=== PATIENT | female | born 1990 | race Two or more races ===

== ENCOUNTER 2018-03-27 00:39 | Inpatient (IN) | payer MEDICAID, OTHER ==
[~2018-03-27] VITALS: Ht 160 cm; Wt 74.5 kg
[2018-03-27] MEDS ORDERED: SODIUM CHLORIDE 0.9% 1,000 ML IV ONE ×3 (07:11→19:45)
[2018-03-27] MEDS ORDERED: MORPHINE SULFATE 4 MG/ML SYR/VIAL IV ONE (07:15)
[2018-03-27] MEDS ORDERED: ONDANSETRON HCL 4 MG/2 ML VIAL IV ONE (07:15)
[2018-03-27] MEDS ORDERED: PIPERACILLIN-TAZOB 3.375GM 100 ML IV ONE (07:15)
[2018-03-27 07:33] LABS: Basophils # (auto) 0.1 uL; Basophils % (auto) 0.4 % (0.0-2.0); Eosinophils # (auto) 0 uL; Eosinophils % (auto) 0.1 % (0.0-7.0); Hematocrit 33.7 % (36.0-46.0); Hemoglobin 11.1 g/dL (12.2-16.2); Lymphocytes % (auto) 5.6 % (10.0-50.0); Mean Corpuscular Hemoglobin 28.4 pg (28.0-32.0); Mean Corpuscular Volume 86.2 fL (80.0-100.0); Monocytes # (auto) 1.3 uL; Monocytes % (auto) 7.6 % (0.0-12.0); Neutrophils # (auto) 15.2 uL; Neutrophils % (auto) 86.3 % (37.0-80.0); Platelet Count (auto) 246 10^3/uL (140-450); Red Cell Distribution Width 13.5 % (11.8-14.3); White Blood Cell 17.6 10^3/uL (4.4-10.8)
[2018-03-27 07:58] LABS: Albumin 2.6 g/dL (3.4-5.0); Bilirubin, Total 0.5 mg/dL (0.2-1.0); Calcium 8.4 mg/dL (8.5-10.1); Potassium 3.8 mmol/L (3.5-5.1); Total Protein 7.6 g/dL (6.4-8.2)
[2018-03-27] MEDS ORDERED: CLINDAMYCIN 600MG IV 50 ML IV ONE (08:15)
[2018-03-27] MEDS: SODIUM CHLORIDE 0.9% 1,000 ML IV SCH ×2 (08:43→15:23)
[2018-03-27] MEDS ORDERED: VANCOMYCIN PER PHARMACY 0 MG IV SCH (08:45)
[2018-03-27] MEDS ORDERED: LACTULOSE 20Gm/30ML SOLN PO PRN (08:45)
[2018-03-27] MEDS ORDERED: MORPHINE SULF INJ 2 MG/ML SYRINGE 1ML IV PRN (08:45)
[2018-03-27] MEDS ORDERED: NITROGLYCERIN 0.4 MG SL TAB SL PRN (08:45)
[2018-03-27] MEDS ORDERED: TEMAZEPAM 15 MG CAP PO PRN (08:45)
[2018-03-27] MEDS ORDERED: LORazepam 0.5 MG TAB PO PRN (08:45)
[2018-03-27] MEDS: ENOXAPARIN SOD 40 MG/0.4 ML SYRINGE SC SCH (10:00)
[2018-03-27] MEDS ORDERED: VANCOMYCIN 1GM/250ML 250 ML IV ONE (10:00)
[2018-03-27] MEDS ORDERED: SODIUM CHLORIDE 0.9% 2,000 ML IV ONE (10:00)
[2018-03-27] MEDS: HYDROcodone-ACET 5/325MG TAB PO PRN ×2 (10:45→18:35)
[2018-03-27 10:46] LABS: Urine Bacteria FEW /hpf (None Seen); Urine Blood TRACE /uL (Negative); Urine Specific Gravity 1.011 (1.001-1.035); Urine WBC 1 /hpf (0 - 5)
[2018-03-27] MEDS: KETOROLAC TROMETH 30 MG/ML 1ML VIAL IV PRN ×2 (14:08→22:30)
[2018-03-27] MEDS: PIPERACILLIN-TAZOB 3.375GM 100 ML IV SCH ×2 (15:00→21:23)
[2018-03-27] MEDS ORDERED: IOHEXOL 300 MG/ML 100ML BOTTLE IJ ONE (19:48)
[2018-03-27 22:00] VITALS: BP 99/34
[2018-03-28] VITALS (35 sets, daily range): BP systolic 80–125; BP diastolic 34–78
[2018-03-28] MEDS: VANCOMYCIN 1GM/250ML 250 ML IV SCH ×2 (00:45→14:02)
[2018-03-28] MEDS ORDERED: traMADol HCL 50 MG TAB PO ONE (02:00)
[2018-03-28] MEDS: PIPERACILLIN-TAZOB 3.375GM 100 ML IV SCH ×4 (03:40→21:00)
[2018-03-28 05:38] LABS: Basophils # (auto) 0 uL; Basophils % (auto) 0.2 % (0.0-2.0); Eosinophils # (auto) 0.1 uL; Eosinophils % (auto) 0.6 % (0.0-7.0); Hematocrit 27.2 % (36.0-46.0); Hemoglobin 9.2 g/dL (12.2-16.2); Lymphocytes % (auto) 8.1 % (10.0-50.0); Mean Corpuscular Hemoglobin 29.2 pg (28.0-32.0); Mean Corpuscular Hgb Conc. 33.7 g/dL (32.0-36.0); Mean Corpuscular Volume 86.4 fL (80.0-100.0); Monocytes # (auto) 0.9 uL; Monocytes % (auto) 6.7 % (0.0-12.0); Neutrophils # (auto) 10.8 uL; Neutrophils % (auto) 84.4 % (37.0-80.0); Platelet Count (auto) 205 10^3/uL (140-450); Red Blood Cells 3.15 10^6/uL (4.0-5.20); Red Cell Distribution Width 13.1 % (11.8-14.3); White Blood Cell 12.8 10^3/uL (4.4-10.8)
[2018-03-28] MEDS: MORPHINE SULF INJ 2 MG/ML SYRINGE 1ML IV PRN (05:50)
[2018-03-28 05:58] LABS: Albumin 1.8 g/dL (3.4-5.0); BUN/Creatinine Ratio 6.9; Calcium 7.1 mg/dL (8.5-10.1); Potassium 3.4 mmol/L (3.5-5.1)
[2018-03-28 06:01] LABS: Bilirubin, Total 0.6 mg/dL (0.2-1.0); Total Protein 5.6 g/dL (6.4-8.2)
[2018-03-28] MEDS: KETOROLAC TROMETH 30 MG/ML 1ML VIAL IV PRN (06:20)
[2018-03-28] MEDS: SODIUM CHLORIDE 0.9% 1,000 ML IV SCH ×4 (09:42→18:03)
[2018-03-28] MEDS: ENOXAPARIN SOD 40 MG/0.4 ML SYRINGE SC SCH (10:10)
[2018-03-28] MEDS ORDERED: POTASSIUM CHL 10 Meq TABLET PO ONE (11:00)
[2018-03-28] MEDS ORDERED: SODIUM CHLORIDE 0.9% 1,000 ML IV ONE (11:15)
[2018-03-28] MEDS ORDERED: ALBUMIN 25% 50 ML IV ONE (12:00)
[2018-03-28] MEDS ORDERED: KETOROLAC TROMETH 30 MG/ML 1ML VIAL IV PRN (12:00)
[2018-03-28] MEDS ORDERED: KETOROLAC TROMETH 30 MG/ML 1ML VIAL IV ONE (12:00)
[2018-03-28] MEDS: Ensure Enlive Strawberry 8oz Bottle PO SCH ×2 (12:20→18:00)
[2018-03-28] MEDS: HYDROcodone-ACET 5/325MG TAB PO PRN ×3 (14:30→22:41)
[2018-03-28] MEDS: NOREPINEPHRINE 8 MG/250ML KIT 250 ML IV SCH (17:00)
[2018-03-29] VITALS (16 sets, daily range): BP systolic 96–111; BP diastolic 42–59
[2018-03-29] MEDS: SODIUM CHLORIDE 0.9% 1,000 ML IV SCH ×4 (00:43→17:40)
[2018-03-29] MEDS: MORPHINE SULF INJ 2 MG/ML SYRINGE 1ML IV PRN ×2 (03:00→07:55)
[2018-03-29] MEDS: PIPERACILLIN-TAZOB 3.375GM 100 ML IV SCH ×4 (03:00→20:54)
[2018-03-29 03:49] LABS: Basophils # (auto) 0.1 uL; Basophils % (auto) 0.4 % (0.0-2.0); Eosinophils # (auto) 0.1 uL; Eosinophils % (auto) 0.7 % (0.0-7.0); Hematocrit 28.3 % (36.0-46.0); Hemoglobin 9.2 g/dL (12.2-16.2); Lymphocytes # (auto) 1.6 uL; Lymphocytes % (auto) 9.9 % (10.0-50.0); Mean Corpuscular Hemoglobin 27.9 pg (28.0-32.0); Mean Corpuscular Hgb Conc. 32.5 g/dL (32.0-36.0); Monocytes # (auto) 1.1 uL; Monocytes % (auto) 6.6 % (0.0-12.0); Neutrophils # (auto) 13.3 uL; Neutrophils % (auto) 82.4 % (37.0-80.0); Platelet Count (auto) 240 10^3/uL (140-450); Red Blood Cells 3.29 10^6/uL (4.0-5.20); Red Cell Distribution Width 13.3 % (11.8-14.3); White Blood Cell 16.2 10^3/uL (4.4-10.8)
[2018-03-29 04:08] LABS: Calcium 7.3 mg/dL (8.5-10.1); Potassium 3.5 mmol/L (3.5-5.1)
[2018-03-29 04:11] LABS: BUN/Creatinine Ratio 6.5
[2018-03-29] MEDS: HYDROcodone-ACET 5/325MG TAB PO PRN ×3 (07:00→16:40)
[2018-03-29] MEDS: Ensure Enlive Strawberry 8oz Bottle PO SCH ×3 (09:22→17:40)
[2018-03-29] MEDS: NOREPINEPHRINE 8 MG/250ML KIT 250 ML IV SCH (11:15)
[2018-03-29] MEDS: VANCOMYCIN 1GM/250ML 250 ML IV SCH ×3 (12:00→23:45)
[2018-03-29] MEDS: ENOXAPARIN SOD 40 MG/0.4 ML SYRINGE SC SCH (18:00)
[2018-03-29] MEDS: KETOROLAC TROMETH 30 MG/ML 1ML VIAL IV PRN (19:27)
[2018-03-29] MEDS: PROMETHAZINE HCL 25 MG/ML 1ML IV PRN (21:17)
[2018-03-30] VITALS (23 sets, daily range): BP systolic 84–128; BP diastolic 43–70
[2018-03-30] MEDS: KETOROLAC TROMETH 30 MG/ML 1ML VIAL IV PRN ×5 (00:44→19:47)
[2018-03-30] MEDS: PIPERACILLIN-TAZOB 3.375GM 100 ML IV SCH ×4 (02:56→20:53)
[2018-03-30] MEDS: SODIUM CHLORIDE 0.9% 1,000 ML IV SCH ×4 (03:23→23:23)
[2018-03-30 03:52] LABS: Eosinophils # (auto) 0.1 uL; Eosinophils % (auto) 0.9 % (0.0-7.0); Hemoglobin 8.2 g/dL (12.2-16.2); Lymphocytes % (auto) 7.5 % (10.0-50.0); Monocytes # (auto) 1.1 uL
[2018-03-30 03:55] LABS: Basophils # (auto) 0 uL; Basophils % (auto) 0.3 % (0.0-2.0); Hematocrit 24.8 % (36.0-46.0); Mean Corpuscular Hemoglobin 28.4 pg (28.0-32.0); Mean Corpuscular Hgb Conc. 33.1 g/dL (32.0-36.0); Mean Corpuscular Volume 85.7 fL (80.0-100.0); Monocytes % (auto) 8.3 % (0.0-12.0); Platelet Count (auto) 189 10^3/uL (140-450); Red Blood Cells 2.89 10^6/uL (4.0-5.20); Red Cell Distribution Width 13.1 % (11.8-14.3); White Blood Cell 13.2 10^3/uL (4.4-10.8)
[2018-03-30 04:10] LABS: BUN/Creatinine Ratio 5.8; Calcium 7.2 mg/dL (8.5-10.1)
[2018-03-30] MEDS: ACETAMINOPHEN 500 MG TAB PO PRN (06:09)
[2018-03-30] MEDS: ENOXAPARIN SOD 40 MG/0.4 ML SYRINGE SC SCH (09:41)
[2018-03-30] MEDS: Ensure Enlive Strawberry 8oz Bottle PO SCH ×3 (09:41→18:00)
[2018-03-30] MEDS: NOREPINEPHRINE 8 MG/250ML KIT 250 ML IV SCH (10:26)
[2018-03-30] MEDS ORDERED: POTASSIUM EFFERVESENT TAB 25 MEQ PO ONE (11:15)
[2018-03-30] MEDS: VANCOMYCIN 1GM/250ML 250 ML IV SCH (12:19)
[2018-03-30] MEDS ORDERED: POTASSIUM CHL 20MEQ/100ML 100 ML IV ONE (15:15)
[2018-03-30] MEDS: FAMOTIDINE 20 MG TAB PO SCH (15:19)
[2018-03-30] MEDS: PROMETHAZINE HCL 25 MG/ML 1ML IV PRN (19:47)
[2018-03-31] VITALS (14 sets, daily range): BP systolic 97–119; BP diastolic 54–72
[2018-03-31] MEDS: VANCOMYCIN 1GM/250ML 250 ML IV SCH ×2 (00:14→13:06)
[2018-03-31] MEDS: KETOROLAC TROMETH 30 MG/ML 1ML VIAL IV PRN ×2 (01:30→10:24)
[2018-03-31 01:45] LABS: Basophils # (auto) 0.1 uL; Basophils % (auto) 0.6 % (0.0-2.0); Eosinophils # (auto) 0.2 uL; Eosinophils % (auto) 1.3 % (0.0-7.0); Hematocrit 27.1 % (36.0-46.0); Hemoglobin 8.9 g/dL (12.2-16.2); Lymphocytes # (auto) 1.4 uL; Lymphocytes % (auto) 9.6 % (10.0-50.0); Mean Corpuscular Hemoglobin 27.9 pg (28.0-32.0); Mean Corpuscular Hgb Conc. 32.9 g/dL (32.0-36.0); Mean Corpuscular Volume 84.8 fL (80.0-100.0); Monocytes % (auto) 7.1 % (0.0-12.0); Neutrophils # (auto) 11.7 uL; Neutrophils % (auto) 81.4 % (37.0-80.0); Platelet Count (auto) 264 10^3/uL (140-450); Red Blood Cells 3.19 10^6/uL (4.0-5.20); Red Cell Distribution Width 13.6 % (11.8-14.3); White Blood Cell 14.4 10^3/uL (4.4-10.8)
[2018-03-31 02:02] LABS: BUN/Creatinine Ratio 5.6; Potassium 3.5 mmol/L (3.5-5.1)
[2018-03-31] MEDS: PIPERACILLIN-TAZOB 3.375GM 100 ML IV SCH ×4 (03:03→21:49)
[2018-03-31] MEDS: SODIUM CHLORIDE 0.9% 1,000 ML IV SCH ×3 (06:03→19:11)
[2018-03-31] MEDS: FAMOTIDINE 20 MG TAB PO SCH (10:06)
[2018-03-31] MEDS: ENOXAPARIN SOD 40 MG/0.4 ML SYRINGE SC SCH (10:06)
[2018-03-31] MEDS: NOREPINEPHRINE 8 MG/250ML KIT 250 ML IV SCH (10:08)
[2018-03-31] MEDS: Ensure Enlive Strawberry 8oz Bottle PO SCH ×3 (10:08→18:22)
[2018-03-31] MEDS: HYDROcodone-ACET 5/325MG TAB PO PRN ×2 (18:20→22:58)
[2018-04-01] MEDS: SODIUM CHLORIDE 0.9% 1,000 ML IV SCH ×4 (00:16→22:03)
[2018-04-01] MEDS: VANCOMYCIN 1GM/250ML 250 ML IV SCH ×2 (00:16→12:22)
[2018-04-01] MEDS: PIPERACILLIN-TAZOB 3.375GM 100 ML IV SCH ×4 (03:07→20:51)
[2018-04-01] MEDS: HYDROcodone-ACET 5/325MG TAB PO PRN ×4 (03:20→21:35)
[2018-04-01 04:49] VITALS: BP 112/61
[2018-04-01 07:21] LABS: Basophils # (auto) 0 uL; Basophils % (auto) 0.2 % (0.0-2.0); Eosinophils # (auto) 0.2 uL; Hematocrit 24.5 % (36.0-46.0); Hemoglobin 8.6 g/dL (12.2-16.2); Lymphocytes # (auto) 1.2 uL; Lymphocytes % (auto) 11.5 % (10.0-50.0); Mean Corpuscular Hemoglobin 29.5 pg (28.0-32.0); Mean Corpuscular Volume 84.4 fL (80.0-100.0); Monocytes # (auto) 0.6 uL; Monocytes % (auto) 6.1 % (0.0-12.0); Neutrophils # (auto) 8.5 uL; Neutrophils % (auto) 80.2 % (37.0-80.0); Nucleated Red Blood Cells % 0.1 %; Platelet Count (auto) 258 10^3/uL (140-450); Red Cell Distribution Width 13.6 % (11.8-14.3); White Blood Cell 10.6 10^3/uL (4.4-10.8)
[2018-04-01 07:24] LABS: Albumin 1.6 g/dL (3.4-5.0); BUN/Creatinine Ratio 4.9; Bilirubin, Total 0.4 mg/dL (0.2-1.0); Calcium 7.5 mg/dL (8.5-10.1); Potassium 3.3 mmol/L (3.5-5.1); Total Protein 5.5 g/dL (6.4-8.2)
[2018-04-01 08:27] VITALS: BP 115/65
[2018-04-01 09:00] VITALS: BP 115/65
[2018-04-01] MEDS: Ensure Enlive Strawberry 8oz Bottle PO SCH ×3 (09:01→18:21)
[2018-04-01] MEDS: ENOXAPARIN SOD 40 MG/0.4 ML SYRINGE SC SCH (09:02)
[2018-04-01] MEDS: FAMOTIDINE 20 MG TAB PO SCH (09:02)
[2018-04-01] MEDS ORDERED: POTASSIUM EFFERVESENT TAB 25 MEQ PO ONE (10:00)
[2018-04-01 12:23] VITALS: BP 136/76
[2018-04-01] MEDS: PROMETHAZINE HCL 25 MG/ML 1ML IV PRN ×2 (12:54→16:50)
[2018-04-01 17:16] VITALS: BP 131/79
[2018-04-01] MEDS: ACETAMINOPHEN 500 MG TAB PO PRN (20:40)
[2018-04-01 22:12] VITALS: BP 123/75
[2018-04-02] MEDS: VANCOMYCIN 1GM/250ML 250 ML IV SCH ×2 (00:08→13:02)
[2018-04-02] MEDS: PIPERACILLIN-TAZOB 3.375GM 100 ML IV SCH ×4 (02:58→21:34)
[2018-04-02] MEDS: HYDROcodone-ACET 5/325MG TAB PO PRN ×5 (02:58→21:34)
[2018-04-02] MEDS: SODIUM CHLORIDE 0.9% 1,000 ML IV SCH ×3 (04:43→18:04)
[2018-04-02 05:00] VITALS: BP 121/71
[2018-04-02 06:41] LABS: Basophils # (auto) 0.1 uL; Basophils % (auto) 0.5 % (0.0-2.0); Eosinophils # (auto) 0.2 uL; Eosinophils % (auto) 1.8 % (0.0-7.0); Hematocrit 25.3 % (36.0-46.0); Hemoglobin 8.5 g/dL (12.2-16.2); Lymphocytes # (auto) 1.1 uL; Lymphocytes % (auto) 10.2 % (10.0-50.0); Mean Corpuscular Hgb Conc. 33.4 g/dL (32.0-36.0); Mean Corpuscular Volume 83.8 fL (80.0-100.0); Monocytes # (auto) 0.6 uL; Monocytes % (auto) 5.6 % (0.0-12.0); Neutrophils # (auto) 8.9 uL; Neutrophils % (auto) 81.9 % (37.0-80.0); Platelet Count (auto) 268 10^3/uL (140-450); Red Blood Cells 3.02 10^6/uL (4.0-5.20); Red Cell Distribution Width 13.6 % (11.8-14.3); White Blood Cell 10.9 10^3/uL (4.4-10.8)
[2018-04-02 07:07] LABS: Calcium 7.9 mg/dL (8.5-10.1); Potassium 3.3 mmol/L (3.5-5.1)
[2018-04-02 07:13] LABS: BUN/Creatinine Ratio 6.2
[2018-04-02] MEDS: PROMETHAZINE HCL 25 MG/ML 1ML IV PRN ×3 (07:30→21:41)
[2018-04-02] MEDS: Ensure Enlive Strawberry 8oz Bottle PO SCH ×3 (07:52→17:14)
[2018-04-02 08:00] VITALS: BP 140/76
[2018-04-02] MEDS: ENOXAPARIN SOD 40 MG/0.4 ML SYRINGE SC SCH (09:13)
[2018-04-02] MEDS: FAMOTIDINE 20 MG TAB PO SCH (09:14)
[2018-04-02 09:44] VITALS: BP 140/76
[2018-04-02 14:48] VITALS: BP 126/78
[2018-04-02] MEDS ORDERED: POTASSIUM CHL 20 Meq TABLET PO ONE (16:15)
[2018-04-02] MEDS: Pro-Stat SF 30ml Vanilla PO SCH (17:14)
[2018-04-02 17:24] VITALS: BP 131/77
[2018-04-02 21:48] VITALS: BP 136/73
[2018-04-03] MEDS: VANCOMYCIN 1GM/250ML 250 ML IV SCH ×2 (00:17→11:50)
[2018-04-03] MEDS: SODIUM CHLORIDE 0.9% 1,000 ML IV SCH ×4 (00:43→21:03)
[2018-04-03] MEDS: PROMETHAZINE HCL 25 MG/ML 1ML IV PRN ×2 (02:04→22:02)
[2018-04-03] MEDS: HYDROcodone-ACET 5/325MG TAB PO PRN ×5 (02:05→21:03)
[2018-04-03] MEDS: PIPERACILLIN-TAZOB 3.375GM 100 ML IV SCH ×4 (03:33→22:02)
[2018-04-03 04:38] VITALS: BP 129/73
[2018-04-03] MEDS: ENOXAPARIN SOD 40 MG/0.4 ML SYRINGE SC SCH (08:58)
[2018-04-03] MEDS: FAMOTIDINE 20 MG TAB PO SCH (08:59)
[2018-04-03] MEDS: MULTIPLE VITAMIN TAB PO SCH (08:59)
[2018-04-03 09:00] VITALS: BP 117/73
[2018-04-03] MEDS: ASCORBIC ACID 500 MG TAB PO SCH (09:03)
[2018-04-03] MEDS: Pro-Stat SF 30ml Vanilla PO SCH ×2 (09:07→17:59)
[2018-04-03] MEDS: Ensure Enlive Strawberry 8oz Bottle PO SCH ×3 (09:07→17:59)
[2018-04-03] MEDS ORDERED: Pro-Stat SF 30ml Vanilla PO SCH (10:00)
[2018-04-03 13:00] VITALS: BP 116/72
[2018-04-03 17:00] VITALS: BP 106/54
[2018-04-03 22:00] VITALS: BP 125/79
[2018-04-04] MEDS: VANCOMYCIN 1GM/250ML 250 ML IV SCH ×3 (00:34→23:30)
[2018-04-04] MEDS: HYDROcodone-ACET 5/325MG TAB PO PRN ×6 (01:01→23:30)
[2018-04-04] MEDS: PIPERACILLIN-TAZOB 3.375GM 100 ML IV SCH ×4 (02:54→20:42)
[2018-04-04 05:00] VITALS: BP 106/58
[2018-04-04] MEDS: ENOXAPARIN SOD 40 MG/0.4 ML SYRINGE SC SCH (08:22)
[2018-04-04] MEDS: ASCORBIC ACID 500 MG TAB PO SCH (08:23)
[2018-04-04] MEDS: MULTIPLE VITAMIN TAB PO SCH (08:23)
[2018-04-04] MEDS: FAMOTIDINE 20 MG TAB PO SCH (08:23)
[2018-04-04] MEDS: Ensure Enlive Strawberry 8oz Bottle PO SCH ×3 (08:24→17:42)
[2018-04-04] MEDS: Pro-Stat SF 30ml Vanilla PO SCH ×2 (08:24→17:42)
[2018-04-04] MEDS: SODIUM CHLORIDE 0.9% 1,000 ML IV SCH ×2 (08:28→10:44)
[2018-04-04 09:00] VITALS: BP 130/66
[2018-04-04 13:00] VITALS: BP 102/54
[2018-04-04 17:00] VITALS: BP 121/85
[2018-04-04] MEDS ORDERED: POTASSIUM CHL 10 Meq TABLET PO ONE (18:45)
[2018-04-04] MEDS ORDERED: FUROSEMIDE 20 MG/2 ML VIAL IV ONE (19:15)
[2018-04-04 22:00] VITALS: BP 109/55
[2018-04-04] MEDS: ACETAMINOPHEN 500 MG TAB PO PRN (23:53)
[2018-04-05] MEDS: PIPERACILLIN-TAZOB 3.375GM 100 ML IV SCH ×4 (02:32→20:30)
[2018-04-05] MEDS: PROMETHAZINE HCL 25 MG/ML 1ML IV PRN (02:33)
[2018-04-05] MEDS: HYDROcodone-ACET 5/325MG TAB PO PRN ×5 (03:30→23:36)
[2018-04-05 05:00] VITALS: BP 101/60
[2018-04-05] MEDS: ACETAMINOPHEN 500 MG TAB PO PRN ×2 (06:03→20:00)
[2018-04-05 08:30] VITALS: BP 105/67
[2018-04-05 08:33] LABS: Basophils # (auto) 0 uL; Basophils % (auto) 0.5 % (0.0-2.0); Eosinophils # (auto) 0.1 uL; Eosinophils % (auto) 1.2 % (0.0-7.0); Hematocrit 25.9 % (36.0-46.0); Hemoglobin 8.6 g/dL (12.2-16.2); Lymphocytes # (auto) 0.8 uL; Lymphocytes % (auto) 11.1 % (10.0-50.0); Mean Corpuscular Hemoglobin 27.9 pg (28.0-32.0); Mean Corpuscular Hgb Conc. 33.3 g/dL (32.0-36.0); Mean Corpuscular Volume 83.7 fL (80.0-100.0); Monocytes # (auto) 0.4 uL; Monocytes % (auto) 6.2 % (0.0-12.0); Neutrophils # (auto) 5.8 uL; Platelet Count (auto) 224 10^3/uL (140-450); White Blood Cell 7.1 10^3/uL (4.4-10.8)
[2018-04-05 08:48] LABS: Calcium 8.3 mg/dL (8.5-10.1); Potassium 3.5 mmol/L (3.5-5.1)
[2018-04-05] MEDS: ENOXAPARIN SOD 40 MG/0.4 ML SYRINGE SC SCH (10:49)
[2018-04-05] MEDS: MULTIPLE VITAMIN TAB PO SCH (10:50)
[2018-04-05] MEDS: Ensure Enlive Strawberry 8oz Bottle PO SCH ×3 (10:50→18:00)
[2018-04-05] MEDS: Pro-Stat SF 30ml Vanilla PO SCH ×2 (10:50→18:00)
[2018-04-05] MEDS: ASCORBIC ACID 500 MG TAB PO SCH (10:50)
[2018-04-05] MEDS: FAMOTIDINE 20 MG TAB PO SCH (10:50)
[2018-04-05] MEDS: VANCOMYCIN 1GM/250ML 250 ML IV SCH ×2 (11:50→23:35)
[2018-04-05 12:30] VITALS: BP 108/53
[2018-04-05 17:00] VITALS: BP 105/59
[2018-04-05 22:00] VITALS: BP 110/60
[2018-04-06] MEDS: PIPERACILLIN-TAZOB 3.375GM 100 ML IV SCH ×4 (03:40→21:19)
[2018-04-06] MEDS: HYDROcodone-ACET 5/325MG TAB PO PRN ×4 (03:41→22:20)
[2018-04-06] MEDS: ACETAMINOPHEN 500 MG TAB PO PRN ×2 (03:41→21:22)
[2018-04-06 05:14] VITALS: BP 93/53
[2018-04-06 08:43] VITALS: BP 112/58
[2018-04-06] MEDS: ASCORBIC ACID 500 MG TAB PO SCH (09:41)
[2018-04-06] MEDS: FAMOTIDINE 20 MG TAB PO SCH (09:41)
[2018-04-06] MEDS: MULTIPLE VITAMIN TAB PO SCH (09:41)
[2018-04-06] MEDS: ENOXAPARIN SOD 40 MG/0.4 ML SYRINGE SC SCH (09:41)
[2018-04-06 11:06] LABS: BUN/Creatinine Ratio 6.6; Calcium 8.3 mg/dL (8.5-10.1); Potassium 3.9 mmol/L (3.5-5.1)
[2018-04-06 14:51] VITALS: BP 115/64
[2018-04-06] MEDS: Pro-Stat SF 30ml Vanilla PO SCH ×2 (16:04→18:10)
[2018-04-06] MEDS: Ensure Enlive Strawberry 8oz Bottle PO SCH ×3 (16:04→18:10)
[2018-04-06 16:47] VITALS: BP 119/65
[2018-04-06] MEDS: VANCOMYCIN 1GM/250ML 250 ML IV SCH (17:49)
[2018-04-06 20:00] VITALS: BP 111/63
[2018-04-06 22:00] VITALS: BP 111/63
[2018-04-07] MEDS: PIPERACILLIN-TAZOB 3.375GM 100 ML IV SCH ×4 (03:30→21:03)
[2018-04-07 05:00] VITALS: BP 109/59
[2018-04-07] MEDS: HYDROcodone-ACET 5/325MG TAB PO PRN ×4 (05:00→23:06)
[2018-04-07 07:48] LABS: Basophils # (auto) 0 uL; Basophils % (auto) 0.4 % (0.0-2.0); Eosinophils # (auto) 0 uL; Eosinophils % (auto) 0.4 % (0.0-7.0); Hematocrit 28.7 % (36.0-46.0); Hemoglobin 9.7 g/dL (12.2-16.2); Lymphocytes # (auto) 0.4 uL; Lymphocytes % (auto) 10.1 % (10.0-50.0); Mean Corpuscular Hemoglobin 28.3 pg (28.0-32.0); Mean Corpuscular Hgb Conc. 33.9 g/dL (32.0-36.0); Mean Corpuscular Volume 83.5 fL (80.0-100.0); Monocytes # (auto) 0.2 uL; Monocytes % (auto) 4.8 % (0.0-12.0); Neutrophils # (auto) 3.3 uL; Neutrophils % (auto) 84.3 % (37.0-80.0); Nucleated Red Blood Cells % 0.2 %; Platelet Count (auto) 219 10^3/uL (140-450); Red Blood Cells 3.44 10^6/uL (4.0-5.20); Red Cell Distribution Width 14.2 % (11.8-14.3); White Blood Cell 3.9 10^3/uL (4.4-10.8)
[2018-04-07] MEDS: Pro-Stat SF 30ml Vanilla PO SCH ×2 (08:00→18:25)
[2018-04-07 08:11] LABS: BUN/Creatinine Ratio 9.6; Calcium 8.5 mg/dL (8.5-10.1); Potassium 3.8 mmol/L (3.5-5.1)
[2018-04-07 08:32] VITALS: BP 113/66
[2018-04-07] MEDS: ENOXAPARIN SOD 40 MG/0.4 ML SYRINGE SC SCH (09:10)
[2018-04-07] MEDS: ASCORBIC ACID 500 MG TAB PO SCH (09:10)
[2018-04-07] MEDS: MULTIPLE VITAMIN TAB PO SCH (09:10)
[2018-04-07] MEDS: FAMOTIDINE 20 MG TAB PO SCH (09:10)
[2018-04-07] MEDS: Ensure Enlive Strawberry 8oz Bottle PO SCH ×3 (09:11→18:25)
[2018-04-07] MEDS: VANCOMYCIN 1GM/250ML 250 ML IV SCH (11:52)
[2018-04-07 14:23] VITALS: BP 100/58
[2018-04-07 17:08] VITALS: BP 104/61
[2018-04-07] MEDS: ACETAMINOPHEN 500 MG TAB PO PRN (17:43)
[2018-04-07 20:00] VITALS: BP 112/71
[2018-04-07 22:00] VITALS: BP 112/71
[2018-04-08] MEDS: ACETAMINOPHEN 500 MG TAB PO PRN ×2 (00:28→22:11)
[2018-04-08] MEDS: PIPERACILLIN-TAZOB 3.375GM 100 ML IV SCH ×2 (03:07→09:37)
[2018-04-08 05:00] VITALS: BP 104/65
[2018-04-08 06:41] LABS: Basophils # (auto) 0 uL; Basophils % (auto) 0.9 % (0.0-2.0); Eosinophils # (auto) 0 uL; Eosinophils % (auto) 0.7 % (0.0-7.0); Hematocrit 28.9 % (36.0-46.0); Hemoglobin 9.8 g/dL (12.2-16.2); Lymphocytes # (auto) 0.5 uL; Lymphocytes % (auto) 15.5 % (10.0-50.0); Mean Corpuscular Hemoglobin 28.5 pg (28.0-32.0); Mean Corpuscular Volume 83.7 fL (80.0-100.0); Monocytes # (auto) 0.3 uL; Monocytes % (auto) 8.4 % (0.0-12.0); Neutrophils # (auto) 2.3 uL; Neutrophils % (auto) 74.5 % (37.0-80.0); Platelet Count (auto) 208 10^3/uL (140-450); Red Blood Cells 3.45 10^6/uL (4.0-5.20); Red Cell Distribution Width 13.7 % (11.8-14.3); White Blood Cell 3.1 10^3/uL (4.4-10.8)
[2018-04-08 06:50] LABS: Albumin 2.3 g/dL (3.4-5.0); BUN/Creatinine Ratio 9.6; Calcium 8.4 mg/dL (8.5-10.1); Potassium 3.8 mmol/L (3.5-5.1)
[2018-04-08 06:53] LABS: Bilirubin, Total 0.3 mg/dL (0.2-1.0); Total Protein 7.1 g/dL (6.4-8.2)
[2018-04-08] MEDS: VANCOMYCIN 1GM/250ML 250 ML IV SCH (07:31)
[2018-04-08] MEDS: HYDROcodone-ACET 5/325MG TAB PO PRN ×4 (07:39→22:10)
[2018-04-08] MEDS: Pro-Stat SF 30ml Vanilla PO SCH ×2 (08:00→18:00)
[2018-04-08 08:30] VITALS: BP 126/74
[2018-04-08] MEDS: MULTIPLE VITAMIN TAB PO SCH (09:38)
[2018-04-08] MEDS: FAMOTIDINE 20 MG TAB PO SCH (09:38)
[2018-04-08] MEDS: Ensure Enlive Strawberry 8oz Bottle PO SCH ×3 (09:38→18:28)
[2018-04-08] MEDS: ASCORBIC ACID 500 MG TAB PO SCH (09:38)
[2018-04-08 13:00] VITALS: BP 98/49
[2018-04-08] MEDS: CLINDAMYCIN 600MG IV 50 ML IV SCH ×2 (13:36→22:10)
[2018-04-08 16:29] VITALS: BP 97/56
[2018-04-08 22:00] VITALS: BP 109/64
[2018-04-08] MEDS ORDERED: HYDROcodone-ACET 7.5/325MG TAB PO PRN (22:15)
[2018-04-09] MEDS: VANCOMYCIN 1GM/250ML 250 ML IV SCH (00:42)
== END 2018-04-09 02:20 | disposition short-term general hospital (02) | DRG 721 ==
LOC: EDBD 00:39 → ER 00:42 → TELE 00:43 → DOU IN ICU 21:52 → ICU WEST 03-28 16:45 → TELE-CENTR 03-31 16:08
PROVIDERS: ADMIT Internal Medicine; ATTEND Internal Medicine
PROC: 02H633Z Insertion of Infusion Device into Right Atrium, Percutaneous Approach (ICD-10-PCS; principal; 2018-03-28)
DX: T81.4XXA Infection following a procedure, initial encounter (principal); R65.21 Severe sepsis with septic shock; E43 Unspecified severe protein-calorie malnutrition; A41.9 Sepsis, unspecified organism; J18.9 Pneumonia, unspecified organism; E87.1 Hypo-osmolality and hyponatremia; R16.0 Hepatomegaly, not elsewhere classified; L03.317 Cellulitis of buttock; D63.8 Anemia in other chronic diseases classified elsewhere; N39.0 Urinary tract infection, site not specified; E66.3 Overweight; E87.6 Hypokalemia; N18.2 Chronic kidney disease, stage 2 (mild); Y83.8 Other surgical procedures as the cause of abnormal reaction of the patient, or of later complication, without mention of misadventure at the time of the procedure; E66.9 Obesity, unspecified; Z68.29 Body mass index [BMI] 29.0-29.9, adult; Q90.9 Down syndrome, unspecified; Y92.89 Other specified places as the place of occurrence of the external cause
CPT/HCPCS: 36415; 71045; 74176; 76881; 80048; 80053; 80202; 81001; 83605; 84132; 85025; 85652; 87040; 87075; 87081; 87086; 87205; 93970; 96361; 96365; 96366; 96368; 96375; A6257; J1885; J2405; J2543; J3480; J3490